=== PATIENT | female | born 1950 | race Caucasian/White ===

== ENCOUNTER → 2017-03-11 | Outpatient (CLI) | payer OTHER | LOC: MC.RAD 15:00 | DX: Z12.31 Encounter for screening mammogram for malignant neoplasm of breast (principal); Z80.3 Family history of malignant neoplasm of breast ==

== ENCOUNTER → 2018-04-13 | Outpatient (CLI) | payer MEDICARE, BC | LOC: MC.RAD 10:36 | DX: Z12.31 Encounter for screening mammogram for malignant neoplasm of breast (principal) ==

== ENCOUNTER 2018-12-29 07:36 | Day surgery (SDC) | payer MEDICARE, BC ==
[~2018-12-29] VITALS: Ht 162.6 cm; Wt 116.5 kg
[2018-12-29 07:47] VITALS: BP 182/93; PULSE 80; TEMP 97.7
[2018-12-29] MEDS ORDERED: GLUCOPHAGE500 MG/TAB PO (07:57)
[2018-12-29] MEDS ORDERED: COZAAR 50MG50 MG/TAB PO (07:58)
[2018-12-29] MEDS ORDERED: ZOCOR 10MG10 MG PO (07:58)
[2018-12-29] MEDS ORDERED: CLARITIN 1010 MG/TAB PO (07:59)
[2018-12-29] MEDS ORDERED: ALEVE 220MG220 MG PO (07:59)
[2018-12-29] MEDS ORDERED: FLAXSEED OIL1000 MG PO (07:59)
[2018-12-29] MEDS ORDERED: COLACE 100100 MG/CAP PO (08:00)
[2018-12-29 09:40] VITALS: BP 144/82; PULSE 73; TEMP 97.1
--- NOTE | 2018-12-29 09:40 | NUR ---
Pt to [facility] via cart from [facility]. Pt awake but drowsy. Pt ambulates to recliner with stand by assistance. Sister in room. Sprite and muffin given per pt request. Will continue to monitor. Call light within reach.
[2018-12-29 09:55] VITALS: BP 154/50; PULSE 73
--- NOTE | 2018-12-29 09:55 | NUR ---
Pt tolerating muffin and fluids without difficulties. Denies needs at this time. Call light within reach.
[2018-12-29 10:10] VITALS: BP 143/94; PULSE 72
--- NOTE | 2018-12-29 10:10 | NUR ---
Discharge instructions reviewed. Pt voices understanding. IV site discontinued with all parts intact. Pt up to dress. Call light within reach.
--- NOTE | 2018-12-29 10:20 | NUR ---
Pt escorted to private car via wheel chair. Pt accompanied home by her sister.
[2018-12-29 13:07] VITALS: BP 149/79; PULSE 75
== END 2018-12-29 10:20 | disposition home or self-care (01) ==
LOC: SDCO 07:36
DX: Z12.11 Encounter for screening for malignant neoplasm of colon (principal); K64.0 First degree hemorrhoids; I10 Essential (primary) hypertension; E78.00 Pure hypercholesterolemia, unspecified; M19.90 Unspecified osteoarthritis, unspecified site; E11.9 Type 2 diabetes mellitus without complications; Z90.710 Acquired absence of both cervix and uterus; Z79.84 Long term (current) use of oral hypoglycemic drugs; Z88.5 Allergy status to narcotic agent; Z88.1 Allergy status to other antibiotic agents
CPT/HCPCS: J2250; J2405; J3010; J7030

== ENCOUNTER → 2019-04-20 | Outpatient (CLI) | payer MEDICARE, BC ==
[~2019-04-20] MED LIST: ALEVE 220MG220 MG PO; CLARITIN 1010 MG/TAB PO; COLACE 100100 MG/CAP PO; COZAAR 50MG50 MG/TAB PO; FLAXSEED OIL1000 MG PO; GLUCOPHAGE500 MG/TAB PO; ZOCOR 10MG10 MG PO
== END ==
LOC: MC.RAD 15:27
DX: Z12.31 Encounter for screening mammogram for malignant neoplasm of breast (principal); Z98.890 Other specified postprocedural states

== ENCOUNTER → 2020-08-31 | Outpatient (CLI) | payer MEDICARE, BC | LOC: MC.RAD 14:41 | DX: Z12.31 Encounter for screening mammogram for malignant neoplasm of breast (principal) ==